=== PATIENT | female | born 1970 | race African-American/Black ===

== ENCOUNTER 2017-04-29 10:28 | Day surgery (SDC) | payer OTHER ==
[2017-04-28 12:10] VITALS: BMI 34.0
[2017-04-29] MEDS ORDERED: MIDAZOLAM HCL 2 MG/2 ML SINGLE DOSE VIAL ONE (11:51)
[2017-04-29] MEDS ORDERED: SUCCINYLCHOLINE CHLORIDE 200 MG/10 ML VIAL ONE (12:22)
[2017-04-29] MEDS ORDERED: PROPOFOL 20 ML ONE ×2 (12:22)
[2017-04-29] MEDS ORDERED: ROCURONIUM BROMIDE 50 MG/5 ML VIAL ONE (12:23)
[2017-04-29] MEDS ORDERED: ceFAZolin SODIUM 1 GM VIAL ONE (12:49)
[2017-04-29] MEDS ORDERED: HYDROmorphone HCL/PF 1 MG/ML VIAL (FOR PYXIS CHARGING ONLY) ONE ×2 (12:56→13:44)
[2017-04-29] MEDS ORDERED: ONDANSETRON 4 MG/2 ML VIAL IVPUSH PRN (13:27)
[2017-04-29] MEDS ORDERED: LACTATED RINGERS SOLUTION 1,000 ML IV SCH ×2 (13:30→14:15)
[2017-04-29] MEDS ORDERED: BUPIVACAINE HCL/PF 0.5% (5MG/ML) 10 ML VIAL ONE (13:37)
[2017-04-29] MEDS ORDERED: NEOSTIGMINE METHYLSULFATE 0.5 MG/ML - 10 ML MDV ONE (13:38)
[2017-04-29] MEDS ORDERED: GLYCOPYRROLATE 0.2 MG/1 ML VIAL ONE (13:38)
[2017-04-29] MEDS ORDERED: BUPIVACAINE HCL/PF 0.5% (5MG/ML) 10 ML VIAL IJ ONE (13:45)
--- NOTE | 2017-04-29 14:14 | OP ---
Operative Note - Note: Operative Date: 04/29/17 Pre-Operative Diagnosis: non-toxic multinodular goiter Operation: Total thyroidectomy Post-Operative Diagnosis: Same as Pre-op Surgeon: Joseph Mendiola Waste Transportation Technician: Nirali Gomes Anesthesiologist/WET POUR SUPERVISOR: Boris Meng Anesthesia: General Specimens Removed: total thyroid Estimated Blood Loss (mls): 20 Drains & Tubes with Location: SAMANTHA- anterior neck Operative Report Dictated: Yes
--- NOTE | 2017-04-29 14:15 | HP ---
History & Physical Update - History History: No Change - Physical Physical: No Change - Assessment Assessment: No Change - Plan Plan: No Change
[2017-04-29] MEDS ORDERED: ONDANSETRON 4 MG/2 ML VIAL IVPB PRN (14:18)
[2017-04-29] MEDS ORDERED: DEXAMETHASONE SOD PHOSPHATE 10 MG/1 ML VIAL IM ONE (14:26)
[2017-04-29] MEDS ORDERED: DEXAMETHASONE SOD PHOSPHATE 4 MG/1 ML VIAL ONE (14:35)
[2017-04-29] MEDS ORDERED: DEXAMETHASONE SOD PHOSPHATE 10 MG/1 ML VIAL IVPUSH ONE (15:30)
[2017-04-29] MEDS: HYDROmorphone HCL CARPU-JECT 1 MG/1 ML DISP.SYRIN IVPB PRN (17:58)
--- NOTE | 2017-04-29 18:27 | OP ---
DATE OF OPERATION: 04/29/2017 PREOPERATIVE DIAGNOSIS: Large multinodular symptomatic goiter. POSTOPERATIVE DIAGNOSIS: Large multinodular symptomatic goiter. PROCEDURE: Total thyroidectomy. SURGEON: Joseph Mendiola MD DIRECTOR OF CONSUMER MARKETING: Nirali ANESTHESIA: General endotracheal intubation. INDICATION FOR PROCEDURE: Patient is a 46-year-old admitted with severe respiratory and dysphagic symptoms from recently enlarged thyroid gland, probably of 6 months' duration. Patient was found to be euthyroid, and multiple nodular goiters were seen. A fine needle aspiration was done and did not show any cancer, but one of the nodules showed some dysplasia. After explaining the risks and benefits to the patient including speech and hypocalcemia, the patient was brought to the operating room. DESCRIPTION OF PROCEDURE: Neck was prepped and draped. Fiberoptic endotracheal tubing was done, and incision was made on the lower part of the neck after the intravenous antibiotic was given. Platysma muscle was opened, and the midline was opened, identified the right and the left thyroid lobes. Sub-strap muscle dissection was done using bipolar cautery. The superior pole was taken down right over the gland to avoid injury to the superior laryngeal nerve and rotation of the gland was done. The middle thyroid vein was identified and tied off on one end and cauterized on the other end. Inferiorly, the inferior thyroid glands were again identified going into the gland, and it was ligated. The isthmus was then taken from the tracheal cartilage. Similarly, the other side was done, and the recurrent laryngeal nerves were identified on both sides and preserved. Estimated blood loss was less than 50 mL. When the gland was removed, a Larry-Kevin was introduced, brought through the wound, and the midline was closed with 3-0 Vicryl and skin with subcutaneous and willie. Local Marcaine was injected, and the patient was extubated with no stridor. No complications were encountered, and during the course of the surgery, two parathyroid glands were identified and preserved. JOSEPH MENDIOLA M.D. [id number] cc: Shellie Mendiola MD
[2017-04-29 20:46] LABS: ALBUMIN 3.6 g/dl (3.5-5.0); ALK PHOS 112 U/L (32-92); ANION GAP 9 (8-16); BILIRUBIN,TOTAL 0.4 mg/dl (0.2-1.0); CO2 22 mmol/L (22-28); CREATININE 0.8 mg/dl (0.6-1.3); GLUCOSE,RANDOM 128 mg/dl (74-106); SGOT/AST 30 U/L (10-42); SGPT/ALT 16 U/L (10-40); TOT PROT 7.6 g/dl (6.4-8.3)
[2017-04-30] MEDS: HYDROmorphone HCL CARPU-JECT 1 MG/1 ML DISP.SYRIN IVPB PRN ×3 (01:56→17:00)
[2017-04-30] MEDS ORDERED: LEVOTHYROXINE NA 150 MCG TABLET PO SCH (07:00)
[2017-04-30 08:40] LABS: MCH 26.5 pg (25.7-33.7); MCHC 34.7 g/dl (32.0-36.0); MEAN CELL VOLUME 76.2 fl (80-96); MEAN PLT VOLUME 8.4 fl (7.5-11.1); NEUTROPHILS 87.3 % (42.8-82.8); PLATELET COUNT 377 K/MM3 (134-434); RDW 14.6 % (11.6-15.6); WHITE BLOOD COUNT 18.5 K/mm3 (4.0-10.8)
[2017-04-30 08:56] LABS: ALBUMIN 3.3 g/dl (3.5-5.0); ALK PHOS 92 U/L (32-92); ANION GAP 10 (8-16); BILIRUBIN,TOTAL 0.6 mg/dl (0.2-1.0); CALCIUM 8.3 mg/dl (8.4-10.2); CO2 23 mmol/L (22-28); CREATININE 0.6 mg/dl (0.6-1.3); GLUCOSE,RANDOM 112 mg/dl (74-106); SGOT/AST 21 U/L (10-42); SGPT/ALT 14 U/L (10-40); TOT PROT 6.8 g/dl (6.4-8.3)
[2017-04-30] MEDS ORDERED: PRENATAL VITAMINS W/ FOLIC ACID TABLET (FP) PO SCH (10:00)
[2017-04-30 14:19] VITALS: BP 117/61; PULSE 75; TEMP 98.2
--- NOTE | 2017-04-30 14:22 | PN ---
Progress Note (short form) - Note Progress Note: 46F POD1 s/p total thyroidectomy under GA-ETT with awake FOB. Pt doing well, no hoarseness, no stridor, no SOB. Pt is well controlled. No anesthetic complications.
--- NOTE | 2017-04-30 18:33 | PN ---
Progress Note (short form) - Note Progress Note: Doing ok. Complains of pain at surgical site. Controlled with pain medication. Eating soft foods ok. Swallowing ok. Denies [place]-oral and extremity paresthesias. Denies CP/SOB. Had BM today. General: calm and cooperative, NAD. Neck: anterior incision c/d/i with willie, 10 cc serosanguinous drainage in SAMANTHA , no edema or erythema Lungs: CTA b/l, good air exchange. Heart: RRR Dx: multinodular goiter with compressive symptoms One day s/p total thyroidectomy Pathology report pending. Calcium decreased slightly but still WNL. Will send home on calcium supplement. Percocet as needed for pain. Colace BID to prevent constipation while taking Percocet. Levothyroxine daily. Follow up in Dr. Mendiola's office in 5 days for removal of willie. Follow up with Endocrinology within one week.
--- NOTE | 2017-05-01 14:23 | PATH ---
Surgical Pathology Report Patient Name: ERENDIRA SMITH [facility]. Rec. #: [id number] /Age/Gender: 1970 (Age: 46) / F Account: [id number] Location: [facility] Taken: 04/29/2017 Received: 04/29/2017 Reported: 05/01/2017 Physicians: Joseph Mendiola M.D. Specimen(s) Received TOTAL THYROID Clinical History Multinodular goiter with compressive symptoms Final Diagnosis THYROID, TOTAL THYROIDECTOMY: BENIGN MULTINODULAR GOITER WITH FOCAL DEGENERATIVE CHANGES, 75 GRAMS TOTAL WEIGHT. TWO BENIGN PARATHYROID GLAND IS PRESENT. ONE BENIGN LYMPH NODE PRESENT. Electronically Signed Kleber Joel M.D. Gross Description Received in formalin labeled "total thyroid," is a 75 g unoriented total thyroidectomy specimen. The probable left lobe measures 8.0 x 5.2 x 3.4 cm, the isthmus measures 1.7 x 1.7 x 0.8 cm and the probable right lobe measures 4.2 x 1.8 x 1.6 cm. The outer capsule is red-brown with focal adhesions and disruptions on the left side. The outer capsule appears intact on the right side. The left lobe is inked blue, the isthmus is inked green and the right lobe is inked red. Sectioning reveals a 1.8 x 1.0 x 1.0 cm white, firm nodule in the central aspect of the left lobe. The remaining thyroid parenchyma displays abundant heterogeneous, focally hemorrhagic colloid nodules. Fast Food Restaurant Manager sections are submitted in 20 cassettes as follows: 7-05-[id number] left lobe sequentially submitted from superior to inferior (suspicious white firm nodule in cassettes 7-8); 24-97-[id number] submitted isthmus from left to right; 27-05-sxoshscs right lobe sequentially submitted from superior to inferior. /04/30/2017 saudi04/30/2017
--- NOTE | 2017-05-02 17:03 | EKG ---
Test Reason : Blood Pressure : / mmHG Vent. Rate : 058 BPM Atrial Rate : 058 BPM P-R Int : 156 ms QRS Dur : 080 ms QT Int : 416 ms P-R-T Axes : 054 000 055 degrees QTc Int : 408 ms SINUS BRADYCARDIA SEPTAL INFARCT , AGE UNDETERMINED NO PREVIOUS ECGS AVAILABLE Confirmed by MD DIOP MARJORY ([id number]) on 05/02/2017 5:02:52 PM Referred By: Joseph Mendiola Confirmed By:KENNETH DIOP MD
== END 2017-04-30 18:50 | disposition home or self-care (01) ==
LOC: FASU 10:28 → FM/S 17:11 → FASU 04-30 18:50
PROVIDERS: ATTEND Surgery Vascular Surgery
PROC: 0GBJ0ZZ Excision of Thyroid Gland Isthmus, Open Approach (ICD-10-PCS; 2017-04-29)
PROC: 0GTK0ZZ Resection of Thyroid Gland, Open Approach (ICD-10-PCS; principal; 2017-04-29 12:00)
DX: E04.2 Nontoxic multinodular goiter (principal)
CPT/HCPCS: 36415; 80053; 84703; 85025; 88307-TC; 93005; 94760